=== PATIENT | female | born 1975 | race Caucasian/White ===

== ENCOUNTER → 2017-03-09 | Day surgery (SDC) | payer OTHER ==
[2017-03-02 15:50] VITALS: Ht 172.7 cm; Wt 154.6 kg
[~2017-03-09] VITALS: Ht 172.7 cm; Wt 154.6 kg
[~2017-03-09] MED LIST: CALC-51 PO; CETI10TA10 PO; CYAN10005 IM; FLUT27.53; LIDOCAINE HCL 2% 2 ML VIAL (20MG/ML) ONE; MIDAZOLAM HCL 1 MG/ML 2ML VIAL ONE; MULT-506 PO; OMEP40CA41 PO; PROPOFOL IV EMULSION 10 MG/ML 20 ML VIAL IV ONE; PSEU30TA3 PO; SODIUM CHLORIDE 0.9% 500ML 500 ML IV ONE
--- NOTE | 2017-03-09 13:59 | Endo History and Physical ---
History & Physical Date of Service: Mar 09, 2017. Chief Complaint: Referring Physician: History of Present Illness Patient with globus sensation and abdominal pain post gastric bypass. Past Surgical History Hx Cardiac Surgery: No Hx Internal Defibrillator: No Hx Pacemaker: No Hx Abdominal Surgery: Yes (C SECTION, GASTRIC BYPASS 2006) Hx of Implantable Prosthesis: No Hx Post-Op Nausea and Vomiting: No Hx Cancer Surgery: No Hx Orthopedic: No Hx Urinary Tract Surgery: No Family History None Social History Smoking Status: Never Smoker Hx Substance Use: No Hx Alcohol Use: No Allergies Coded Allergies: Morphine (Verified Adverse Reaction, Mild, VERY NAUSEATED, 03/02/17) Uncoded Allergies: MUSINEX (Allergy, Mild, dizzy, 03/09/17) Current Medications Reported Home Medications Medications Dose Route/Sig Max Daily Dose Days Date Category Flonase Sensimist (Fluticasone Furoate) 27.5 Mcg/Kennard Julianne 03/09/17 Reported Sudafed Nasal Decongestan (Pseudoephedrine Hcl) 30 Mg Tab 1 Tab PO BID PRN 03/02/17 Reported Zyrtec (Cetirizine Hcl) 10 Mg Tab 10 Mg PO QAM 03/02/17 Reported Prilosec (Omeprazole) 40 Mg Cap 40 Mg PO QAM 03/02/17 Reported Calcium (Calcium Carbonate-Vitamin D) 1 Tab Tab 1 Tab PO QAM 03/02/17 Reported Multivitamin (Multivitamins) Tab 1 Tab PO QAM 03/02/17 Reported Vitamin B-12 (Cyanocobalamin) 1,000 Mcg Tab 1,000 Mcg IM MONTHLY 03/02/17 Reported Vital Signs Weight (Kilograms): 154.55 Height (Feet): 5 Height (Inches): 8 Date Time Temp Pulse Resp B/P (MAP) Pulse Ox O2 Delivery O2 Flow Rate FiO2 03/09/17 13:55 37.1 84 16 183/90 (121) 98 Room Air Physical Exam General Appearance: no apparent distress Respiratory/Chest: Auscultation: breath sounds normal Cardiovascular: Heart Auscultation: RRR Abdomen: Inspection & Palpation: soft, non-distended Assessment and Plan Stable for EGD.
--- NOTE | 2017-03-09 14:50 | GI REPORT ---
Procedure Date: 03/09/2017 2:09 PM Procedure: Upper GI endoscopy Indications: Abdominal bloating, Globus sensation Medicines: Monitored Anesthesia Care Complications: No immediate complications. Estimated Blood Loss: Estimated blood loss: none. Procedure: Pre-Anesthesia Assessment: - Prior to the procedure, a History and Physical was performed, and patient medications and allergies were reviewed. The patient is competent. The risks and benefits of the procedure and the sedation options and risks were discussed with the patient. All questions were answered and informed consent was obtained. Patient identification and proposed procedure were verified by the physician and the nurse in the procedure room. Mental Status Examination: alert and oriented. Airway Examination: normal oropharyngeal airway and neck mobility. Respiratory Examination: clear to auscultation. CV Examination: normal. ASA Grade Assessment: II - A patient with mild systemic disease. After reviewing the risks and benefits, the patient was deemed in satisfactory condition to undergo the procedure. The anesthesia plan was to use monitored anesthesia care (MAC). Immediately prior to administration of medications, the patient was re-assessed for adequacy to receive sedatives. The heart rate, respiratory rate, oxygen saturations, blood pressure, adequacy of pulmonary ventilation, and response to care were monitored throughout the procedure. The physical status of the patient was re-assessed after the procedure. After obtaining informed consent, the endoscope was passed under direct vision. Throughout the procedure, the patient's blood pressure, pulse, and oxygen saturations were monitored continuously. The scope was introduced through the mouth, and advanced to the efferent jejunal loop. The upper GI endoscopy was accomplished without difficulty. The patient tolerated the procedure well. 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 The examined esophagus was otherwise normal. A small hiatus hernia was present. Evidence of a gastric bypass was found. A gastric pouch with a medium size was found. The staple line appeared intact. The gastrojejunal anastomosis was characterized by healthy appearing mucosa and an intact staple line. This was traversed. The [id number] limb was characterized by healthy appearing mucosa. Biopsies were taken with a cold forceps for Helicobacter pylori testing. Verification of patient identification for the specimen was done by the physician and nurse using the patient's name and date. The examined jejunum was normal. 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 - Normal esophagus. - Small hiatus hernia. - Gastric bypass with intact staple line. Gastrojejunal anastomosis characterized by healthy appearing mucosa. Biopsied. - Normal examined jejunum. Recommendation: - Discharge patient to home. - Await pathology results. - Check stool for H.Pylori Ag. - PO PPI trial for 4 weeks. - If no improvement in symptoms with PPI, would consider EGD with APC of the inlet patches. - Return to referring physician. Ernst Alexander MD 03/09/2017 2:49:32 PM This report has been signed electronically. Note Initiated On: 03/09/2017 2:09 PM I attest to the content of the Intraoperative Record and orders documented therein, exceptions below
--- NOTE | 2017-03-09 14:54 | Anesthesiology Progress Note ---
Anesthesia Post Op Note Date & Time Mar 09, 2017 at 14:54 Vital Signs Pain Intensity: 0 Vital Signs Past 12 Hours Date Time Temp Pulse Resp B/P (MAP) Pulse Ox O2 Delivery O2 Flow Rate FiO2 03/09/17 14:36 77 16 111/84 (93) 98 Room Air 03/09/17 13:55 37.1 84 16 183/90 (121) 98 Room Air Notes Mental Status: alert / awake / arousable, participated in evaluation Pt Amnestic to Procedure: Yes Nausea / Vomiting: adequately controlled Pain: adequately controlled Airway Patency, RR, SpO2: stable & adequate BP & HR: stable & adequate Hydration State: stable & adequate Anesthetic Complications: no major complications apparent
[2017-03-09 15:06] VITALS: BP 156/80; PULSE 72; O2SAT 99
--- NOTE | 2017-03-09 15:08 | Discharge Instructions ---
Endoscopy Patient Instructions Date / Procedure(s) Performed Mar 09, 2017. EGD Allergy Information Coded Allergies: Morphine (Verified Adverse Reaction, Mild, VERY NAUSEATED, 03/02/17) Uncoded Allergies: MUSINEX (Allergy, Mild, dizzy, 03/09/17) Discharge Date / Findings Mar 09, 2017. Two inlet patches in the upper esophagus. Small Hiatal hernia. Gastric bypass, intact staple line and healthy anastomosis. Normal jejunum. Provider Instructions Activity Restrictions - No exercising or heavy lifting for 24 hours. - Do not drink alcohol the day of the procedure. - Do not drive a car or operate machinery until the day after the procedure. - Do not make any important decisions or sign important papers in 24 hours after the procedure. Following Day: - Return to full activity which may include returning to work/school. Diet Start your diet with liquids and light foods (jello, soup, juice, toast). Then eat your usual diet if not nauseated. Treatment For Common After Affects For mild abdominal pain, bloating, or excessive gas: - Rest - Eat lightly - Lie on right side Follow-Up Information Liquid PPI trial. Stool for H.Pylori Consider EGD with APC of the patches if no improvement. Follow-up with Dr. Sheikh as scheduled Anesthesia Information What You Should Know You have had a procedure that required some medicine to reduce anxiety and discomfort. This treatment is called moderate sedation. After receiving the treatment, you may be sleepy, but you will be able to breathe on your own. The effects of the treatment may last for several hours. Follow these instructions along with Activity/Diet recommendations noted above: * Do NOT do anything where dizziness or clumsiness would be dangerous. * Rest quietly at home today, then you can be up and about tomorrow. * Have a responsible person stay with you the rest of today. * You may have had an I.V. today. If so, you may take the dressing off later today. Recommendations Call your doctor if: * Trouble breathing * Continuous vomiting for more than 24 hours * Temperature above 101 degrees * Severe abdominal pain or bloating * Pain not relieved by pain medicine ordered * There is increased drainage or redness from any incision * A large amount of rectal bleeding greater than 2-3 tablespoons. (If you had a polyp/s removed or have hemorrhoids, a small amount of blood - from the rectum is to be expected.) * You have any unanswered questions or concerns. IN THE EVENT OF A SERIOUS EMERGENCY, GO TO THE NEAREST EMERGENCY ROOM Your discharge instructions were prepared by provider Ernst Alexander. Patient Instructions Signature Page Dannie Robbins Patient (or Guardian) Signature/Date: I have read and understand the instructions given to me by my caregivers. Caregiver/RN/Doctor Signature/Date: The above-named patient and/or guardian has received patient instructions on this date. + Original Patient Signature Page (only) stays with chart. Please make copy for patient.
== END | disposition home or self-care (01) ==
LOC: C.GI 13:21
PROVIDERS: ATTEND Student in an Organized Health Care Education/Training Program
DX: F45.8 Other somatoform disorders (principal); R10.9 Unspecified abdominal pain; K44.9 Diaphragmatic hernia without obstruction or gangrene; Z98.84 Bariatric surgery status; K21.9 Gastro-esophageal reflux disease without esophagitis; E66.9 Obesity, unspecified; H54.7 Unspecified visual loss

== ENCOUNTER → 2017-04-06 | Day surgery (SDC) | payer OTHER ==
[2017-03-31 14:49] VITALS: Ht 172.7 cm; Wt 154.6 kg
[~2017-04-06] VITALS: Ht 172.7 cm; Wt 154.6 kg
[~2017-04-06] MED LIST changes: +ATROPINE SULFATE 0.1 MG/ML 5ML SYR IV PRN; +EpHEDrine SULFATE INJ 50 MG/ML AMP IV PRN; +GLYCOPYRROLATE INJ 0.2 MG/ML VIAL ONE; -MIDAZOLAM HCL 1 MG/ML 2ML VIAL ONE; +Z PACK PO
[2017-04-06 13:45] VITALS: TEMP 36.5
--- NOTE | 2017-04-06 13:54 | Endo History and Physical ---
History & Physical Date of Service: Apr 06, 2017. Chief Complaint: inlet patch esophagus Referring Physician: Dr. Walter Sheikh History of Present Illness Globus sensation, history of inlet patch. Past Surgical History Hx Cardiac Surgery: No Hx Internal Defibrillator: No Hx Pacemaker: No Hx Abdominal Surgery: Yes (C SECTION, GASTRIC BYPASS 2006) Hx of Implantable Prosthesis: No Hx Post-Op Nausea and Vomiting: No Hx Cancer Surgery: No Hx Thoracic Surgery: No Hx Orthopedic: No Hx Urinary Tract Surgery: No Family History None Social History Smoking Status: Never Smoker Hx Substance Use: No Hx Alcohol Use: No Allergies Coded Allergies: Morphine (Verified Adverse Reaction, Mild, VERY NAUSEATED, 03/31/17) Uncoded Allergies: MUCINEX (Allergy, Unknown, DIZZINESS, 03/31/17) Current Medications Reported Home Medications Medications Dose Route/Sig Max Daily Dose Days Date Category [Z Pack] 500 Mg PO DIRECTED 04/06/17 Reported Flonase Sensimist (Fluticasone Furoate) 27.5 Mcg/Henderson Julianne 03/09/17 Reported Sudafed Nasal Decongestan (Pseudoephedrine Hcl) 30 Mg Tab 1 Tab PO BID PRN 03/02/17 Reported Zyrtec (Cetirizine Hcl) 10 Mg Tab 10 Mg PO QAM 03/02/17 Reported Prilosec (Omeprazole) 40 Mg Cap 40 Mg PO QAM 03/02/17 Reported Calcium (Calcium Carbonate-Vitamin D) 1 Tab Tab 1 Tab PO QAM 03/02/17 Reported Multivitamin (Multivitamins) Tab 1 Tab PO QAM 03/02/17 Reported Vitamin B-12 (Cyanocobalamin) 1,000 Mcg Tab 1,000 Mcg IM MONTHLY 03/02/17 Reported Vital Signs Weight (Kilograms): 154.55 Height (Feet): 5 Height (Inches): 8 Date Time Temp Pulse Resp B/P (MAP) Pulse Ox O2 Delivery O2 Flow Rate FiO2 04/06/17 13:45 36.5 78 20 137/65 (89) 100 Room Air Physical Exam General Appearance: WD/WN, no apparent distress Respiratory/Chest: Auscultation: breath sounds normal, no wheezing Cardiovascular: Heart Auscultation: RRR, no murmurs Assessment and Plan EGD with ablation of inlet patch.
--- NOTE | 2017-04-06 14:35 | GI REPORT ---
Procedure Date: 04/06/2017 1:56 PM Procedure: Upper GI endoscopy Indications: Globus sensation for ablation of inlet patch; s/p RYGB Medicines: Monitored Anesthesia Care Complications: No immediate complications. Estimated blood loss: None. Estimated Blood Loss: Estimated blood loss: none. Procedure: Pre-Anesthesia Assessment: - Prior to the procedure, a History and Physical was performed, and patient medications, allergies and sensitivities were reviewed. The patient's tolerance of previous anesthesia was reviewed. - ASA Grade Assessment: III - A patient with severe systemic disease. After obtaining informed consent, the endoscope was passed under direct vision. Throughout the procedure, the patient's blood pressure, pulse, and oxygen saturations were monitored continuously. The scope was introduced through the mouth, and advanced to the jejunum. The upper GI endoscopy was accomplished with ease. The patient tolerated the procedure well. Findings: Two inlet patches were found in the proximal esophagus. Fulguration to ablate the lesions by argon plasma at 0.8 liters/minute and 15 vega was successful. No endoscopic abnormality was evident in the esophagus to explain the patient's complaint of dysphagia/globus. It was decided, however, to proceed with dilation of the entire esophagus. A guidewire was placed and the scope was withdrawn. Dilation was performed with an [place] dilator with no resistance at 48 Fr and 54 Fr. The Z-line was regular and was found 39 cm from the incisors. Evidence of a gastric bypass was found. A gastric pouch with a normal size was found. The staple line appeared intact. The gastrojejunal anastomosis was characterized by healthy appearing mucosa. This was traversed. The examined jejunum was normal. Impression: - Inlet patches fulgurated with APC - No endoscopic esophageal abnormality to explain patient's dysphagia. Esophagus dilated. Dilated. - Z-line regular, 39 cm from the incisors. - Gastric bypass with a normal-sized pouch and intact staple line. Gastrojejunal anastomosis characterized by healthy appearing mucosa. - Normal examined jejunum. - No specimens collected. Recommendation: - Observe patient's clinical course. - Discharge patient to home (with escort). Bryce Joy M.D. Bryce Joy MD 04/06/2017 2:35:06 PM This report has been signed electronically. Note Initiated On: 04/06/2017 1:56 PM I attest to the content of the Intraoperative Record and orders documented therein, exceptions below
--- NOTE | 2017-04-06 14:47 | Discharge Instructions ---
Endoscopy Patient Instructions Date / Procedure(s) Performed Apr 06, 2017. EGD Allergy Information Coded Allergies: Morphine (Verified Adverse Reaction, Mild, VERY NAUSEATED, 03/31/17) Uncoded Allergies: MUCINEX (Allergy, Unknown, DIZZINESS, 03/31/17) Discharge Date / Findings Apr 06, 2017. Inlet patches esophagus, ablated with APC. Empirical dilation to 53 Fr performed. Medication Instructions Restart Stopped Medication(s): Restart all medications today. Provider Instructions Activity Restrictions - No exercising or heavy lifting for 24 hours. - Do not drink alcohol the day of the procedure. - Do not drive a car or operate machinery until the day after the procedure. - Do not make any important decisions or sign important papers in 24 hours after the procedure. Following Day: - Return to full activity which may include returning to work/school. Diet Start your diet with liquids and light foods (jello, soup, juice, toast). Then eat your usual diet if not nauseated. Treatment For Common After Affects For mild abdominal pain, bloating, or excessive gas: - Rest - Eat lightly - Lie on right side Follow-Up Information Follow-up with Dr. Walter Sheikh as scheduled Anesthesia Information What You Should Know You have had a procedure that required some medicine to reduce anxiety and discomfort. This treatment is called moderate sedation. After receiving the treatment, you may be sleepy, but you will be able to breathe on your own. The effects of the treatment may last for several hours. Follow these instructions along with Activity/Diet recommendations noted above: * Do NOT do anything where dizziness or clumsiness would be dangerous. * Rest quietly at home today, then you can be up and about tomorrow. * Have a responsible person stay with you the rest of today. * You may have had an I.V. today. If so, you may take the dressing off later today. Recommendations Call your doctor if: * Trouble breathing * Continuous vomiting for more than 24 hours * Temperature above 101 degrees * Severe abdominal pain or bloating * Pain not relieved by pain medicine ordered * There is increased drainage or redness from any incision * A large amount of rectal bleeding greater than 2-3 tablespoons. (If you had a polyp/s removed or have hemorrhoids, a small amount of blood - from the rectum is to be expected.) * You have any unanswered questions or concerns. IN THE EVENT OF A SERIOUS EMERGENCY, GO TO THE NEAREST EMERGENCY ROOM Your discharge instructions were prepared by provider Bryce Joy. Patient Instructions Signature Page Dannie Rosendo Patient (or Guardian) Signature/Date: I have read and understand the instructions given to me by my caregivers. Caregiver/RN/Doctor Signature/Date: The above-named patient and/or guardian has received patient instructions on this date. + Original Patient Signature Page (only) stays with chart. Please make copy for patient.
--- NOTE | 2017-04-06 14:48 | Anesthesiology Progress Note ---
Anesthesia Post Op Note Date & Time Apr 06, 2017 at 14:48 Vital Signs Pain Intensity: 0 Vital Signs Past 12 Hours Date Time Temp Pulse Resp B/P (MAP) Pulse Ox O2 Delivery O2 Flow Rate FiO2 04/06/17 14:38 78 20 103/86 (92) 99 Room Air 04/06/17 13:45 36.5 78 20 137/65 (89) 100 Room Air Notes Mental Status: alert / awake / arousable, participated in evaluation Pt Amnestic to Procedure: Yes Nausea / Vomiting: adequately controlled Pain: adequately controlled Airway Patency, RR, SpO2: stable & adequate BP & HR: stable & adequate Hydration State: stable & adequate Anesthetic Complications: no major complications apparent
[2017-04-06 15:05] VITALS: BP 166/84; PULSE 89; O2SAT 99
== END | disposition home or self-care (01) ==
LOC: C.GI 13:19
PROVIDERS: ATTEND Internal Medicine Gastroenterology
DX: F45.8 Other somatoform disorders (principal); Z98.84 Bariatric surgery status

== ENCOUNTER → 2017-10-13 | Outpatient (CLI) | payer OTHER ==
[~2017-10-13] MED LIST changes: -ATROPINE SULFATE 0.1 MG/ML 5ML SYR IV PRN; -EpHEDrine SULFATE INJ 50 MG/ML AMP IV PRN; +FERR1TAB13 PO; -GLYCOPYRROLATE INJ 0.2 MG/ML VIAL ONE; +IBUP-103 PO; -LIDOCAINE HCL 2% 2 ML VIAL (20MG/ML) ONE; +MTR600X PO; -OMEP40CA41 PO; -PROPOFOL IV EMULSION 10 MG/ML 20 ML VIAL IV ONE; -PSEU30TA3 PO; -SODIUM CHLORIDE 0.9% 500ML 500 ML IV ONE; -Z PACK PO
[2017-10-13 15:49] LABS: BASO % 0.4 %; BASO ABS # 0.05 K/uL (0-0.2); EOS % 0.6 %; EOS ABS # 0.08 K/uL (0-0.5); HEMATOCRIT 41.9 % (37-47); HEMOGLOBIN 13.7 g/dL (12.0-16.0); IG# 0.03 K/uL (0.00-0.02); LYMPH % 21.2 %; LYMPH ABS # 2.88 K/uL (1.2-3.4); MEAN CELL VOLUME 91.3 fL (80-100); MEAN CORPUSCULAR HEMOGLOBIN 29.8 pg (25-34); MEAN CORPUSCULAR HGB CONC 32.7 g/dl (32-36); MEAN PLATELET VOLUME 10.6 fL (7.4-10.4); MONO % 5.9 %; NEUT % 71.7 %; NEUT ABS # 9.73 K/uL (1.4-6.5); PLATELET COUNT 357 K/uL (130-400); RED CELL DISTRIBUTION WIDTH CV 13.9 % (11.5-14.5); RED CELL DISTRIBUTION WIDTH SD 46.1 fL (36.4-46.3); WHITE BLOOD COUNT 13.57 K/uL (4.8-10.8)
[2017-10-13 15:56] LABS: BLOOD UREA NITROGEN 12 mg/dl (7-18); CALCIUM 8.5 mg/dl (8.5-10.1); CARBON DIOXIDE 27 mmol/L (21-32); GLUCOSE 84 mg/dl (70-99); POTASSIUM 3.8 mmol/L (3.5-5.1); SODIUM 138 mmol/L (136-145)
== END | disposition home or self-care (01) ==
LOC: C.LAB 14:43
PROVIDERS: ATTEND Obstetrics & Gynecology Obstetrics
DX: Z01.812 Encounter for preprocedural laboratory examination (principal)